=== PATIENT | female | born 1975 | race Caucasian/White ===

== ENCOUNTER 2024-04-15 12:45 | Emergency (ER) | payer BC ==
[~2024-04-15] VITALS: Ht 154.9 cm; Wt 99.8 kg
[2024-04-15 12:50] VITALS: BP 159/70; PULSE 81; RESP 18; TEMP 99.2; O2SAT 100
[2024-04-15 13:54] LABS: BASOPHIL # 0.1 10^3/uL (0.0-0.1); BASOPHIL % 0.6 % (0.1-1.2); EOSINOPHIL # 0.3 10^3/uL (0.0-0.2); EOSINOPHIL % 3.1 % (0.0-5.0); HEMATOCRIT(ML) 39.6 % (36.0-46.0); HEMOGLOBIN 12.1 g/dL (12.0-15.0); LYMPHOCYTES # 1.58 10^3/uL1 (1.0-4.8); LYMPHOCYTES % 19.3 % (24.0-44.0); MEAN CORP HGB 25.5 pg (26-34); MEAN CORP HGB CONCENTRATION 30.6 g/dL (33-36.5); MEAN CORP VOLUME 83.4 fL (78-100); MONOCYTES # 0.5 10^3/uL (0.3-0.8); MONOCYTES % 5.6 % (5.0-12.0); NEUTROPHIL # 5.8 10^3/uL (1.8-7.7); NEUTROPHILS % 70.7 % (41.0-85.0); PLATELET COUNT 313 10^3/uL (150-400); RED BLOOD CELL 4.75 10^6/uL (4.00-5.20); WHITE BLOOD CELL 8.2 10^3/uL (4.5-11.0)
[2024-04-15 14:03] LABS: BILIRUBIN,URINE NEGATIVE (NEGATIVE); LEUKOCYTE ESTERASE ,URINE NEGATIVE (NEGATIVE); NITRATE,URINE NEGATIVE (NEGATIVE); PH,URINE 7.5 (4.5-8.0); UROBILINOGEN,URINE 0.2 E.U./dL (0.2)
[2024-04-15 14:16] LABS: ALBUMIN(ML) 3.7 g/dL (3.4-5.0); ALBUMIN/GLOBULIN RATIO 0.925; ANION GAP 12.1; BUN/CREATININE RATIO 12.06 (10.0-20.0); CALCIUM 9.1 mg/dL (8.4-10.5); CARBON DIOXIDE 26.7 mmol/L (20.0-32); CREATININE SERUM 0.58 mg/dL (0.59-1.40); POTASSIUM 3.8 mmol/L (3.6-5.2)
[2024-04-15 14:17] LABS: UAMPH METHAMP(SCRN) NEGATIVE (co1000ng/mL); UR MDMA (ECSTASY) SCRN NEGATIVE (c/o300ng/mL); UR METHADONE SCRN NEGATIVE (c/o300ng/mL); UR OPIATE SCRN NEGATIVE (c/o300ng/mL); UR PHENCYCLIDINE (PCP) SCRN NEGATIVE (c/o 25ng/mL); UR TETRAHYDROCANNABINOL SCRN NEGATIVE (c/o 50ng/mL)
[2024-04-15 14:18] LABS: APPEARANCE,URINE CLEAR; UA COLOR YELLOW
[2024-04-15 14:32] LABS: +ADD MANUAL DIFF(NO CHRG) NO
[2024-04-15] MEDS ORDERED: BENZ200C48 PO (14:36)
[2024-04-15 14:50] VITALS: BP 160/72; PULSE 71; RESP 18; TEMP 99.2; O2SAT 100
== END 2024-04-15 14:46 | disposition home or self-care (01) ==
LOC: ER 12:45
DX: J20.8 Acute bronchitis due to other specified organisms (principal); B97.89 Other viral agents as the cause of diseases classified elsewhere; D64.9 Anemia, unspecified; F31.9 Bipolar disorder, unspecified; I11.0 Hypertensive heart disease with heart failure; I50.9 Heart failure, unspecified; F17.210 Nicotine dependence, cigarettes, uncomplicated; I42.9 Cardiomyopathy, unspecified; Z88.0 Allergy status to penicillin
CPT/HCPCS: 36415; 71045; 80053; 80307; 81003; 83880; 84484; 85025; 93005; 99284

== ENCOUNTER 2024-04-19 18:42 | Emergency (ER) | payer BC ==
[~2024-04-19] VITALS: Ht 154.9 cm; Wt 97.5 kg
[~2024-04-19 18:42] MED LIST: BENZ200C48 PO
[2024-04-19 18:54] VITALS: BP 201/136; PULSE 86; RESP 18; TEMP 97.9; O2SAT 99
[2024-04-19] MEDS ORDERED: APRESOLINE ONE (19:21)
[2024-04-19] MEDS ORDERED: TORADOL ONE (19:21)
[2024-04-19] MEDS: APRESOLINE PO STA (19:25)
[2024-04-19] MEDS: TORADOL IM STA (19:25)
[2024-04-19 20:00] VITALS: BP 171/77; PULSE 82; RESP 18; O2SAT 97
[2024-04-19 20:36] VITALS: BP 158/71; PULSE 96; RESP 18; O2SAT 97
== END 2024-04-19 20:38 | disposition home or self-care (01) ==
LOC: ER 18:42
DX: M25.562 Pain in left knee (principal); E11.9 Type 2 diabetes mellitus without complications; I11.0 Hypertensive heart disease with heart failure; I50.9 Heart failure, unspecified; F17.290 Nicotine dependence, other tobacco product, uncomplicated; Z88.0 Allergy status to penicillin; Z91.148 Patient's other noncompliance with medication regimen for other reason
CPT/HCPCS: 99284; 73562; 29530; 96372; J0360; J1885